=== PATIENT | male | born 2000 | race Caucasian/White ===

== ENCOUNTER 2018-12-28 08:35 | Emergency (ER) | payer SELFPAY ==
[~2018-12-28] VITALS: Ht 167.6 cm; Wt 67.0 kg
[~2018-12-28 08:35] MED LIST: AMOXIL400 MG/5 M OR; NO CURRENT MEDS
[2018-12-28] MEDS ORDERED: ULTRAM50 M1 PO (08:51)
[2018-12-28 09:05] VITALS: BP 137/72
== END 2018-12-28 09:10 | disposition home or self-care (01) | DRG 563 ==
LOC: ED 08:35
PROC: 2W3CX1Z Immobilization of Right Lower Arm using Splint (ICD-10-PCS; principal; 2018-12-28)
DX: S62.302A Unspecified fracture of third metacarpal bone, right hand, initial encounter for closed fracture (principal); W22.09XA Striking against other stationary object, initial encounter; Y92.009 Unspecified place in unspecified non-institutional (private) residence as the place of occurrence of the external cause

== ENCOUNTER 2019-05-22 13:28 | Emergency (ER) | payer SELFPAY ==
[~2019-05-22] VITALS: Ht 167.6 cm; Wt 65.0 kg
[~2019-05-22 13:28] MED LIST changes: +ULTRAM50 M1 PO
[2019-05-22] MEDS ORDERED: ONDANSETRON4 MG PO ×2 (14:05→14:28)
[2019-05-22 14:32] VITALS: BP 137/62
== END 2019-05-22 14:32 | disposition home or self-care (01) | DRG 392 ==
LOC: ED 13:28
DX: K52.9 Noninfective gastroenteritis and colitis, unspecified (principal)

== ENCOUNTER 2024-03-30 19:33 | Emergency (ER) | payer SELFPAY ==
[~2024-03-30] VITALS: Ht 167.6 cm; Wt 70.3 kg
[~2024-03-30 19:33] MED LIST changes: +ONDANSETRON4 MG PO
[2024-03-30] MEDS ORDERED: BACTRIM DS1 TAB PO (19:54)
[2024-03-30 20:16] VITALS: BP 129/90
== END 2024-03-30 20:17 | disposition home or self-care (01) | DRG 607 ==
LOC: ED 19:33
DX: L72.3 Sebaceous cyst (principal)